=== PATIENT | male | born 1960 | race Caucasian/White ===

== ENCOUNTER 2016-05-14 06:09 | Day surgery (SDC) | payer BC ==
[2016-05-14] MEDS ORDERED: LIDOCAINE 1% 5 ML SDV ONE (07:01)
[2016-05-14] MEDS ORDERED: SKIN ADHESIVE (DERMABOND) 1 EACH TP ONE (07:07)
[2016-05-14] MEDS ORDERED: EPINEPHrine 30 MG/30 ML MDV ONE (07:07)
[2016-05-14] MEDS ORDERED: CEFAZOLIN 2 GM/DEXTROSE/100 ML BAG IV ONE (07:09)
[2016-05-14] MEDS ORDERED: fentaNYL 100 MCG/2 ML INJ ONE (07:10)
[2016-05-14] MEDS ORDERED: PROPOFOL 200 MG/20 ML VIAL ONE (07:10)
[2016-05-14] MEDS ORDERED: ONDANSETRON 4 MG/2 ML VIAL ONE (07:11)
[2016-05-14] MEDS ORDERED: DEXAMETHASONE 4 MG/ML VIAL ONE (07:11)
[2016-05-14] MEDS ORDERED: ROCURONIUM 50 MG/5 ML VIAL ONE (07:12)
[2016-05-14] MEDS ORDERED: LIDOCAINE 2% 5 ML SDV ONE ×2 (07:15→07:18)
[2016-05-14] MEDS ORDERED: MIDAZOLAM 2 MG/2 ML VIAL ONE (07:16)
[2016-05-14] MEDS ORDERED: ROPIVACAINE HCL 150 MG/30 ML INJ ONE (07:17)
[2016-05-14] MEDS ORDERED: clonIDINE 1 MG/10 ML VIAL EP ONE (07:21)
[2016-05-14] MEDS ORDERED: CEFAZOLIN 2 GM/DEXTR 100 ML IV ONE (07:30)
[2016-05-14] MEDS ORDERED: LIDO/BUPIVA/morphINE 15ML SYR IU ONE (07:30)
[2016-05-14] MEDS ORDERED: LIDO/BUPIVA 10ML SYR IU ONE (07:30)
[2016-05-14] MEDS ORDERED: CHLORHEXIDINE GLUC HIBICLENS 118 ML BTL TP ONE (07:30)
[2016-05-14] MEDS ORDERED: epHEDrine SULFATE 10 MG/ML SYR ONE ×2 (08:02→08:04)
--- NOTE | 2016-05-14 11:03 | GOP ---
[f rep st] OPERATIVE REPORT DATE OF OPERATION: 05/14/2016 SURGEON: Yoel Mena MD PARKING ATTENDANT: Nickolas Disla MD. It should be noted no qualified resident was available. First vale mcmanus was necessary to assist with the procedure. ANESTHESIA: General with interscalene block. ANESTHESIOLOGIST: Marcelle Guillen DO PREOPERATIVE DIAGNOSIS: Left shoulder massive rotator cuff re-tear. POSTOPERATIVE DIAGNOSIS: Left shoulder massive rotator cuff re-tear. PROCEDURE PERFORMED: Revision arthroscopic repair of the rotator cuff, CPT code 08984. FINDINGS: 1. Intact labrum with a healed anterior labrum. 2. Intact articular cartilage of humeral head and glenoid with some small grade 2 change in the anter ior humeral head. 3. A massive tear of the rotator cuff involving the supraspinatus and infraspinatus with some loose s utures. 4. Scarring in the subacromial space with some scar tissue between the posterior rotator cuff and the deltoid. INDICATIONS: Patient is a 55-year-old with a history of a rotator cuff repair in the fall of 2016. He had fallen. MRI demonstrated a re-tear of the rotator cuff. He desired to have a revision repair . He understood the potential risks and benefits including, but not limited to, bleeding, infection, persistent pain, stiffness, anesthetic risks. He understood this and desired to proceed. DESCRIPTION OF PROCEDURE: Patient was taken to the operating room. After undergoing successful gene ral anesthesia and an interscalene block, patient was placed in the beach-chair position. The left u pper extremity was prepped and draped in usual sterile manner. Anatomic landmarks were identified. The anterior and posterior portal sites were injected with 0.25% Marcaine, 1% lidocaine. The subacro mial space injected with the same. Posterior portal was made. Arthroscope placed in the joint. With the arthroscope in the joint, ante rior portal was made. The probe was placed, and the findings are described above. The findings in t he joint were identified. The labrum was healed anteriorly. It was previously fixed. The tear was identified. A lateral portal was made. The greater tuberosity was debrided, and some loose sutures were debrided from the greater tuberosity in the rotator cuff. The arthroscope then was placed in the subacromial space. Time was devoted to debriding the scar tis renate and identifying the rotator cuff. After extensive debridement of the subacromial space and relea se of any scar tissue, the rotator cuff was mobilized. Next, after abrading the greater tuberosity, a series of anchors was then placed on the greater tuberosity. Most of these were placed on the medi al third of the greater tuberosity. These were placed. 2.9 mm JuggerKnot suture anchors were placed . These were then placed through the rotator cuff utilizing either the Spectrum or the penetrating d evice. These were placed down. The rotator cuff was then fixed. There was good tissue with good re pair. Laterally, the bone was also drilled to help stimulate bleeding to help assist in the healing of the tissue. Following this, the area was then irrigated. The portal sites closed using 3-0 nylon suture. The morrison bacromial space injected with 0.25% Marcaine, 1% lidocaine, and 5 mg of Duramorph. The patient had a sterile dressing, was placed in a sling. Patient was awakened, taken to the recovery room in stable condition. Sponge, instrument, and needle counts were correct. PATIENT POSITION: Beach chair. PLAN: The patient will undergo physical therapy, emphasis on passive range of motion only for 8 week s. Sling for 8 weeks. We will follow a modified [facility] rotator cuff protocol. /[id number]/MODL
== END 2016-05-14 11:55 | disposition home or self-care (01) ==
LOC: FSGY 06:09
PROVIDERS: ATTEND Orthopaedic Surgery Sports Medicine
PROC: 0LQ24ZZ Repair Left Shoulder Tendon, Percutaneous Endoscopic Approach (ICD-10-PCS; principal; 2016-05-14 07:15)
DX: S46.012A Strain of muscle(s) and tendon(s) of the rotator cuff of left shoulder, initial encounter (principal); W01.0XXA Fall on same level from slipping, tripping and stumbling without subsequent striking against object, initial encounter
CPT/HCPCS: C1713; J0690; J0735; J1100; J2250; J2274; J2405; J2704; J2795; J3010